=== PATIENT | female | born 1975 | race African-American/Black ===

== ENCOUNTER 2019-02-02 17:03 | Emergency (ER) | payer OTHER ==
--- NOTE | 2019-02-02 17:04 | PDOC ---
History of Present Illness - History of Present Illness Initial Comments: The patient is a 44 year old female , with a significant PMH of heart murmur and anemia, who presents to the emergency department today complaining of a sore throat, cough, and fever for 3 days. Patient began experiencing symptoms 3 days ago after picking up her kids from school and being coughed on by a sick child. Patient complains of a sore throat, which causes pain with swallowing and talking. She also complains of a cough, productive with green sputum. Patient endorses a fever, with a max temp of 101.9. Patient reports talking [facility] pain relievers, last being earlier this morning, with minimal relief. The patient denies chest pain, shortness of breath, headache and dizziness. Denies chills, nausea, vomit, diarrhea and constipation. Denies dysuria, frequency, urgency and hematuria. Allergies: Penicillins Past surgical history: and wrist reduction Social history: Social EtOH consumption, occasional cigar, no illicit drug use PCP: Doesn't have one (Retired) 02/02/19 17:58 <Annalise Osullivan - Last Filed: 02/02/19 17:58> <Milan Brewster - Last Filed: 02/02/19 18:07> - General Chief Complaint: Sore Throat Stated Complaint: SORE THROAT Time Seen by Provider: 02/02/19 17:04 Past History <Annalise Osullivan - Last Filed: 02/02/19 17:58> <Milan Brewster - Last Filed: 02/02/19 18:07> - Past Medical History Allergies/Adverse Reactions: Allergies Allergy/AdvReac Type Severity Reaction Status Date / Time Penicillins Allergy Verified 02/02/19 17:06 Home Medications: Ambulatory Orders Acetaminophen 650 mg PO ONCE 02/02/19 Ascorbic Acid [Vitamin C] 1,000 mg PO DAILY 02/02/19 Azithromycin [Zithromax 250mg Tablets -] 250 mg PO DAILY #4 tablet 02/02/19 Ibuprofen 1 - 2 tab PO Q4HWA PRN #20 tablet 02/02/19 L.acidoph,Paracasei, B.lactis [Probiotic] 1 each PO DAILY 02/02/19 Review of Systems - Review of Systems Comments:: GENERAL/CONSTITUTIONAL: +101.9 max temp fever. No chills. No weakness. HEAD, EYES, EARS, NOSE AND THROAT: +Sore throat. No change in vision. No ear pain or discharge. CARDIOVASCULAR: No chest pain or shortness of breath. RESPIRATORY: +Productive cough with green sputum. No wheezing, or hemoptysis. GASTROINTESTINAL: No nausea, vomiting, diarrhea or constipation. GENITOURINARY: No dysuria, frequency, or change in urination. MUSCULOSKELETAL: No joint or muscle swelling or pain. No neck or back pain. SKIN: No rash NEUROLOGIC: No headache, vertigo, loss of consciousness, or change in strength/ sensation. ENDOCRINE: No increased thirst. No abnormal weight change. HEMATOLOGIC/LYMPHATIC: No anemia, easy bleeding, or history of blood clots. ALLERGIC/IMMUNOLOGIC: No hives or skin allergy. 02/02/19 17:59 <Annalise Osullivan - Last Filed: 02/02/19 17:58> *Physical Exam - Vital Signs Last Vital Signs Temp Pulse Resp BP Pulse Ox 101.9 F H 125 H 20 154/96 98 02/02/19 17:03 02/02/19 17:03 02/02/19 17:03 02/02/19 17:03 02/02/19 17:03 - Physical Exam Comments: GENERAL: Awake, alert, and fully oriented, in no acute distress HEAD: No signs of trauma EYES: PERRLA, EOMI, sclera anicteric, conjunctiva clear ENT: +Mild ejection of the posterior pharynx, without exudates, swelling or masses. Auricles normal inspection, hearing grossly normal, nares patent. Moist mucosa NECK: Normal ROM, supple, no lymphadenopathy, JVD, palpable nobes, masses LUNGS: Breath sounds equal, clear to auscultation bilaterally. No wheezes, and no crackles HEART: Regular rate and rhythm, normal S1 and S2, no rubs or gallops. No murmur appreciated. ABDOMEN: Soft, nontender, normoactive bowel sounds. No guarding, no rebound. No masses EXTREMITIES: Normal range of motion, no edema. No clubbing or cyanosis. No cords, erythema, or tenderness NEUROLOGICAL: Cranial nerves II through XII grossly intact. Normal speech, normal gait SKIN: Warm, Dry, normal turgor, no rashes or lesions noted. 02/02/19 17:59 <Annalise Osullivan - Last Filed: 02/02/19 17:58> ED Treatment Course - Medications Given in the ED: ED Medications Discontinued Medications Generic Name Dose Route Start Last Admin Trade Name Kitty PRN Reason Stop Dose Admin Ibuprofen 800 mg 02/02/19 17:23 02/02/19 17:31 Motrin - PO 02/02/19 17:24 800 mg ONCE ONE Administration <Annalise Osullivan - Last Filed: 02/02/19 17:58> Medical Decision Making - Medical Decision Making 02/02/19 18:03 Positive strep screen Azithromycin (patient ALLERGIC to penicillin) follow-up primary physician. <Milan Brewster - Last Filed: 02/02/19 18:07> *DC/Admit/Observation/Transfer - Attestations Scribe Attestion: Documentation prepared by SO De La Cruz, acting as medical hospital sales for Milan Bardales MD. 02/02/19 17:59 <Annalise Osullivan - Last Filed: 02/02/19 17:58> - Discharge Dispostion Decision to Admit order: No <Mialn Brewster - Last Filed: 02/02/19 18:07> Diagnosis at time of Disposition: Strep throat - Discharge Dispostion Disposition: HOME Condition at time of disposition: Stable - Prescriptions Prescriptions: Azithromycin [Zithromax 250mg Tablets -] 250 mg PO DAILY #4 tablet - Referrals Referrals: ON STAFF,NOT [Primary Care Provider] - 1 week - Patient Instructions Printed Discharge Instructions: DI for Strep Throat Additional Instructions: Rest, fluids, Motrin or Tylenol. Follow-up primary physician.
[2019-02-02 17:20] VITALS: BP 154/96; PULSE 125; TEMP 101.9; BMI 34.1
[2019-02-02] MEDS ORDERED: IBUPROFEN 400 MG TABLET (FP) PO ONE ×2 (17:23→17:28)
[2019-02-02] MEDS ORDERED: AZITHROMYCIN 250 MG TABLET PO ONE (18:02)
[2019-02-02] MEDS ORDERED: AZITHROMYCIN 500 MG TABLET ONE (18:06)
== END 2019-02-02 18:12 | disposition home or self-care (01) ==
LOC: FER 17:03 → SUPCPDRO 17:03 → FER 18:12
DX: J02.0 Streptococcal pharyngitis (principal); R01.1 Cardiac murmur, unspecified; D64.9 Anemia, unspecified
CPT/HCPCS: 87880; 99281-25

== ENCOUNTER 2019-08-28 11:52 | Emergency (ER) | payer OTHER ==
--- NOTE | 2019-08-28 11:57 | PDOC ---
Attending Attestation - Resident Resident Name: MillieEvelio wilkerson - ED Attending Attestation I have performed the following: I have examined & evaluated the patient, The case was reviewed & discussed with the resident, I agree w/resident's findings & plan, Exceptions are as noted - HPI HPI: 08/28/19 12:23 Dysuria after sexual intercourse. First sexual encounter in over one year. Use condoms. No vaginal discharge or abdominal pain. No fever or back pain. - Physicial Exam PE: 08/28/19 12:24 Physical exam: Afebrile, normal vital signs Abdomen soft nontender. No bladder distention. No CVAT - Medical Decision Making 08/28/19 12:25 Assessment: Rule out UTI, rule out GC/chlamydia Plan: Urinalysis, urine culture, GC chlamydia amplification. Further treatment depending on results. 08/28/19 12:49 Urinalysis shows no sign of infection. Symptoms may be due only to the localized irritation. Pyridium and lubrication recommended. Await culture results for further evaluation.
[2019-08-28 12:02] VITALS: BP 157/98; PULSE 78; TEMP 97.5; BMI 32.4
--- NOTE | 2019-08-28 12:13 | PDOC ---
History of Present Illness - General Chief Complaint: Urinary Problem Stated Complaint: URINARY SX Time Seen by Provider: 08/28/19 11:56 - History of Present Illness Initial Comments: The pt is a 44F w/ no reported PMH who presents for evaluation of several days of urinary discomfort. The pt reports having sex for the first time in a year this past week, noticed dysuria for the last several days, and wanted to be evaluated. She denies hematuria, frequency, abdominal pain, fevers, or back pain. She also states that she would like to have a GC screen. She endorses using condoms with sex. 08/28/19 12:09 Past History - Past Medical History Allergies/Adverse Reactions: Allergies Allergy/AdvReac Type Severity Reaction Status Date / Time Penicillins Allergy Verified 08/28/19 11:55 Home Medications: Ambulatory Orders Multivitamin [Multiple Vitamins] 1 each PO DAILY 08/28/19 Cardiac Disorders: Yes (arrhythmia) COPD: No - Reproductive History Is Patient Now?: No - Psycho Social/Smoking Cessation Hx Smoking History: Never smoked Have you smoked in the past 12 months: No Information on smoking cessation initiated: No Hx Alcohol Use: (occasional) Drug/Substance Use Hx: No Review of Systems - Review of Systems Able to Perform ROS?: Yes Comments:: GENERAL/CONSTITUTIONAL: No fever or chills. No weakness HEAD, EYES, EARS, NOSE AND THROAT: No change in vision. No change in hearing. No sore throat CARDIOVASCULAR: No chest pain or shortness of breath RESPIRATORY: Denies cough, hemoptysis GASTROINTESTINAL: No nausea, vomiting, diarrhea or constipation GENITOURINARY: +dysuria; No frequency, or change in urination MUSCULOSKELETAL: No joint or muscle swelling or pain. No neck or back pain SKIN: No rash NEUROLOGIC: No headache, vertigo, loss of consciousness, or change in strength/ sensation ENDOCRINE: No increased thirst. No abnormal weight change HEMATOLOGIC/LYMPHATIC: No anemia, easy bleeding, or history of blood clots ALLERGIC/IMMUNOLOGIC: No hives or skin allergy 08/28/19 12:08 Is the patient limited French proficient: No *Physical Exam - Vital Signs Last Vital Signs Temp Pulse Resp BP Pulse Ox 97.5 F L 78 18 157/98 100 08/28/19 11:52 08/28/19 11:52 08/28/19 11:52 08/28/19 11:52 08/28/19 11:52 - Physical Exam Comments: GENERAL: Awake, alert, and oriented to person/place/time, in no acute distress HEAD: No signs of trauma, normocephalic, atraumatic EYES: PERRLA, EOMI, sclera anicteric, conjunctiva clear ENT: Hearing grossly normal, nares patent, oropharynx clear without exudates. Moist mucosa LUNGS: No distress, speaks in full sentences, clear to auscultation bilaterally HEART: Regular rate and rhythm, normal S1 and S2, no murmurs appreciated, peripheral pulses normal and equal bilaterally ABDOMEN: Soft, protuberant, nontender, normoactive bowel sounds. No guarding, no rebound EXTREMITIES: Normal inspection, Normal range of motion, no edema. No clubbing or cyanosis NEUROLOGICAL: Cranial nerves II through XII grossly intact. Normal speech, normal gait, no focal sensorimotor deficits SKIN: Warm, Dry 08/28/19 12:09 Medical Decision Making - Medical Decision Making The pt is a 44F w/ no reported PMH who presents for evaluation of several days of dysuria ED Course UA, UCx, GC amplification 08/28/19 12:11 UA w/o evidence of UTI Plan for D/C w/ PCP f/u Discharge instructions and return precautions given Patient in agreement and verbalized understanding Dispo: Home 08/28/19 13:15 Discharge - Discharge Information Problems reviewed: Yes Clinical Impression/Diagnosis: UTI (urinary tract infection) Qualifiers: Urinary tract infection type: acute cystitis Hematuria presence: without hematuria Qualified Code(s): N30.00 - Acute cystitis without hematuria Condition: Stable Disposition: HOME - Admission No - Follow up/Referral - Patient Discharge Instructions Additional Instructions: You were seen in the Emergency Department for evaluation of dysuria (urinary discomfort). Your labs were negative for evidence of urinary tract infection. Review the handout provided at discharge. Follow up with your primary care provider. Return to the Emergency Department if you develop fevers, chest pain, trouble breathing, worsening pain, change in sensation, worsening symptoms, or any new/ concerning symptoms. - Post Discharge Activity Work/Back to School Note: Back to Work
== END 2019-08-28 13:30 | disposition home or self-care (01) ==
LOC: FER 11:52
DX: N30.00 Acute cystitis without hematuria (principal); Z88.0 Allergy status to penicillin
CPT/HCPCS: 36415; 81003; 87086; 87186; 87491; 87591; 99283-25